=== PATIENT | male | born 1940 | race Caucasian/White ===

== ENCOUNTER 2017-04-06 13:13 | Inpatient (IN) | payer OTHER ==
--- NOTE | 2017-04-06 13:55 | ED.PDOC ---
General ED Provider: Dr. ANNA THOMAS Chief Complaint: Non-specific Complaint Stated Complaint: Flu like symtoms that he thiinks he got from the . c/o sore throat, bodyaches feels like the flu. Had a near syncapal episode in the waiting room. Time Seen by Physician: 13:52 Mode of Arrival: Walk-In Information Source: Patient Exam Limitations: No limitations Primary Care Provider: JOSH STEPHENSON Nursing and Triage Documentation Reviewed and Agree: Yes Miscellaneous Complaint Exam - Febrile Illness/Adult Complaint/Exam Onset/Duration: 2 days Symptoms Are: Still present Highest Temperature Recorded: 101.6 Review of Systems - Review Of Systems Constitutional: Reports: Fever, Weakness, Loss of appetite Eyes: Reports: No symptoms Ears, Nose, Mouth, Throat: Reports: Throat pain Respiratory: Reports: No symptoms Cardiac: Reports: Lightheadedness GI: Reports: No symptoms : Reports: No symptoms Musculoskeletal: Reports: No symptoms Skin: Reports: No symptoms Neurological: Reports: Anxiety Endocrine: Reports: No symptoms Hematologic/Lymphatic: Reports: No symptoms All Other Systems: Reviewed and Negative Past Medical History - Past Medical History Endocrine: Reports: Dyslipidemia Cardiovascular: Reports: Hypertension Respiratory: Reports: None Hematological: Reports: None Gastrointestinal: Reports: GERD Genitourinary: Reports: None Neuro/Psych: Reports: None Musculoskeletal: Reports: None Cancer: Reports: None - Surgical History General Surgical History: Reports: Orthopedic (right leg surgery ), Hernia Repair - Family History Family History: Reports: Unknown - Social History Smoking Status: Former smoker Hx Substance Use: No Alcohol Screening: None - Immunizations Tetanus Shot up to Date: No Physical Exam - Physical Exam Appearance: Ill-appearing Ill-appearing: Moderate Eyes: YAHAIRA, EOMI, Conjunctiva clear ENT: Ears normal, Nose normal Neck: Supple Respiratory: Airway patent, Breath sounds clear, Breath sounds equal, Respirations nonlabored Cardiovascular: RRR, Pulses normal, No rub, No murmur GI/: Soft, Nontender, Bowel sounds normal Musculoskeletal: Normal strength, ROM intact Skin: Warm, Dry Neurological: Sensation intact, Motor intact, Reflexes intact, Cranial nerves intact, Alert, Oriented Psychiatric: Affect appropriate, Mood appropriate Interpretation - EKG Interpretation Time of EKG #1: 14:10 Rate: Normal Rhythm: Sinus Ectopy: None Petty: NL ST Segment: Normal Interpretation: normaL EKG Critical Care Note - Critical Care Note Total Time (mins): 30 Comments: Blood pressure Course - Course Hematology/Chemistry: 04/06/17 14:00 04/06/17 14:00 Orders, Labs, Meds: Lab Review 04/06/17 04/06/17 04/06/17 14:00 14:00 14:00 WBC 12.46 H RBC 4.49 L Hgb 13.8 L Hct 39.4 L MCV 87.8 MCH 30.7 MCHC 35.0 RDW Coeff of Gloria 12.4 Plt Count 206 Immature Gran % (Auto) 0.4 Neut % (Auto) 79.4 Lymph % (Auto) 10.4 [place] % (Auto) 7.6 Eos % (Auto) 1.9 Baso % (Auto) 0.3 Immature Gran # (Auto) 0.1 Neut # 9.9 H Lymph # 1.3 [place] # 1.0 Eos # 0.2 Baso # 0.0 Sodium 139 Potassium 3.6 Chloride 103 Carbon Dioxide 26 Anion Gap 13.6 BUN 12 Creatinine 1.09 Estimated GFR (MDRD) 66.00 BUN/Creatinine Ratio 11.00 Glucose 102 Calcium 9.3 Total Bilirubin 0.67 AST 16 ALT 17 Alkaline Phosphatase 62 Troponin I < 0.0100 Total Protein 7.2 Albumin 3.7 Globulin 3.5 Albumin/Globulin Ratio 1.06 Influenza A (Rapid) Negative Influenza B (Rapid) Negative Orders Category Date Time Status EKG-(ED ONLY) Stat CARDIO 04/06/17 13:35 Completed ED IV/MEDIPORT/POWERPORT .ONCE EMERGENCY 04/06/17 14:18 Active Orthostatic [ED ORTHOSTATIC VITAL SIGNS] .ONCE EMERGENCY 04/06/17 13:52 Active BLOOD CULTURE Stat LAB 04/06/17 15:40 Received CBC W/ AUTO DIFF Stat LAB 04/06/17 14:00 Completed COMPREHENSIVE METABOLIC PANEL Stat LAB 04/06/17 14:00 Completed FLU A & B RAPID TEST [RAPID FLU A/B] Stat LAB 04/06/17 14:00 Completed MOLECULAR GROUP A STREP Stat LAB 04/06/17 14:00 Results STREP SCREEN Stat LAB 04/06/17 14:00 Results TROPONIN I Stat LAB 04/06/17 14:00 Completed 0.9 % Sodium Chloride [Saline Flush] MEDS 04/06/17 14:18 Ordered 1 syr IVF PRN PRN Azithromycin [Zithromax] MEDS 04/06/17 15:17 Discontinued 500 mg PO ONCE STA Ceftriaxone Sodium [Rocephin] 1 gm MEDS 04/06/17 15:17 Discontinued 0.9 % Sodium Chloride [Sodium Chloride] 50 ml IV ONCE Methylprednisolone Sod Succ/Pf [Solu-Medrol 125 mg] MEDS 04/06/17 15:15 Discontinued 125 mg IVP ONCE STA Sodium Chloride 0.9% [Sodium Chloride] 1,000 ml MEDS 04/06/17 14:18 Discontinued IV BOLUS CHEST, 1V AP ONLY Stat RADS 04/06/17 15:[address] HEAD W/O CONTRAST Stat RADS 04/06/17 14:18 Completed Medications Generic Name Dose Route Start Last Admin Trade Name Freq PRN Reason Stop Dose Admin Acetaminophen 650 mg 04/06/17 15:24 04/06/17 17:09 Tylenol PO 650 mg Q4H PRN Administration Fever Azithromycin 250 mg 04/07/17 15:30 Zithromax PO 04/10/17 09:01 DAILY ON LICENSE OF [facility] Enoxaparin Sodium 40 mg 04/07/17 09:00 Lovenox SUBCUT DAILY ON LICENSE OF [facility] Escitalopram Oxalate 5 mg 04/07/17 09:00 Lexapro PO DAILY ON LICENSE OF [facility] Ceftriaxone Sodium 1 gm/ 50 mls @ 75 mls/hr 04/07/17 09:00 Sodium Chloride IV DAILY ON LICENSE OF [facility] Sodium Chloride 1,000 mls @ 125 mls/hr 04/06/17 15:30 04/06/17 16:53 Sodium Chloride IV 125 mls/hr .Q8H LUBA Administration Magnesium Hydroxide 15 ml 04/06/17 21:00 Milk Of Magnesia PO TID ON LICENSE OF [facility] Non-Formulary Medication 10 mg 04/07/17 09:00 Simvastatin [Simvastatin] PO DAILY ON LICENSE OF [facility] Omeprazole 40 mg 04/07/17 06:30 Prilosec PO QDAC LUBA Ondansetron HCl 4 mg 04/06/17 15:24 Zofran 4 Mg/2 Ml IVP Q6H PRN Nausea / Vomiting Sodium Chloride 1 syr 04/06/17 14:18 Saline Flush IVF PRN PRN To flush IV Tamsulosin HCl 0.4 mg 04/07/17 09:00 Flomax PO DAILY [facility] Discontinued Medications Generic Name Dose Route Start Last Admin Trade Name Freq PRN Reason Stop Dose Admin Azithromycin 500 mg 04/06/17 15:17 04/06/17 15:37 Zithromax PO 04/06/17 15:18 500 mg ONCE STA Administration Sodium Chloride 1,000 mls @ 1,000 mls/hr 04/06/17 14:18 04/06/17 14:40 Sodium Chloride IV 04/06/17 15:17 1,000 mls/hr BOLUS STA Administration Ceftriaxone Sodium 1 gm/ 50 mls @ 75 mls/hr 04/06/17 15:17 04/06/17 15:37 Sodium Chloride IV 04/06/17 15:56 75 mls/hr ONCE STA Administration Methylprednisolone Sodium Succinate 125 mg 04/06/17 15:15 04/06/17 15:36 Solu-Medrol 125 Mg IVP 04/06/17 15:16 125 mg ONCE STA Administration Vital Signs: Temp Pulse Resp BP Pulse Ox 04/06/17 14:10 92 H 91/65 04/06/17 14:09 69 130/68 04/06/17 13:15 99.2 F 73 20 128/65 98 Departure - Departure Time of Disposition: 15:18 Disposition: ADMITTED INPATIENT Discharge Problem: Orthostatic hypotension, Viral syndrome Condition: Fair Pt referred to PMD for follow-up: No (admitted ) Allergies/Adverse Reactions: Allergies No Known Allergies Allergy (Verified 04/06/17 13:20) Home Medications: Ambulatory Orders Escitalopram Oxalate [Lexapro] 5 mg PO BEDTIME 10/10/13 Omeprazole [Prilosec] 40 mg PO BEDTIME 10/10/13 Simvastatin 10 mg PO BEDTIME 10/10/13 Tamsulosin HCl [Flomax] 0.4 mg PO BEDTIME 10/10/13
[2017-04-06 14:07] LABS: BASOPHILS % (AUTO) 0.3 % (0.0-3.0); EOSINOPHILS # (AUTO) 0.2 K/ul (0.0-0.7); EOSINOPHILS % (AUTO) 1.9 % (0.0-7.0); HEMATOCRIT 39.4 % (42.0-52.0); HEMOGLOBIN 13.8 g/dl (14.0-18.0); IMMATURE GRANULOCYTE % (AUTO) 0.4 % (0.0-5.0); LYMPHOCYTES # (AUTO) 1.3 K/uL (0.60-3.4); LYMPHOCYTES % (AUTO) 10.4 (10.0-50.0); MEAN CORPUSCULAR HEMOGLOBIN 30.7 pg (27.0-31.0); MEAN CORPUSCULAR VOLUME 87.8 fl (80.0-94.0); MONOCYTES % (AUTO) 7.6 (0-10); NEUTROPHILS # (AUTO) 9.9 K/ul (2.0-6.9); NEUTROPHILS % (AUTO) 79.4; PLATELET COUNT 206 10^3/uL (140-440); RED BLOOD COUNT 4.49 10^6/ul (4.70-6.10); WHITE BLOOD COUNT 12.46 K/ul (4.2-10.2)
[2017-04-06] MEDS ORDERED: SODIUM CHLORIDE 1,000 ML IV STA (14:18)
[2017-04-06 14:26] LABS: FLU INTERNAL QC INTERNAL QC VALID; RAPID FLU A NEGATIVE (NEGATIVE); RAPID FLU B NEGATIVE (NEGATIVE)
[2017-04-06 14:33] LABS: ALANINE AMINOTRANSFERASE 17 U/L (12-78); ALBUMIN 3.7 g/dL (3.4-5.0); ALBUMIN/GLOBULIN RATIO 1.06; ALKALINE PHOSPHATASE 62 U/L (56-119); ANION GAP 13.6; ASPARTATE AMINO TRANSFERASE 16 U/L (15-37); BILIRUBIN,TOTAL 0.67 mg/dL (0.00-1.20); BLOOD UREA NITROGEN 12 mg/dL (7-18); CALCIUM 9.3 mg/dL (8.2-10.2); CARBON DIOXIDE 26 mmol/L (23-31); CHLORIDE 103 mmol/L (98-107); CREATININE 1.09 mg/dL (0.60-1.10); GLUCOSE 102 mg/dL (82-115); POTASSIUM 3.6 mmol/L (3.5-5.1); SODIUM 139 mmol/L (136-145); TOTAL PROTEIN 7.2 g/dL (5.8-8.1)
--- NOTE | 2017-04-06 14:45 | CT ---
EXAM: Noncontrast CT head. HISTORY: Near-syncope. COMPARISON: None available at the time of dictation. TECHNIQUE: Noncontrast CT head was performed with axial, coronal and sagittal reconstructions. Findings: There is preservation of the joshi-white differential without evidence of definitive large vessel acut e cortical infarct identified. No acute intracranial hemorrhage is identified. No midline shift is i dentified. No definitive intracranial mass lesion is identified within technical limitations of nonco ntrast CT. The basal cisterns are patent. There is mild ventricular enlargement suggesting diffuse b rain parenchymal volume loss. Bilateral minimal periventricular white matter hypodensities are presen t. Limited evaluation of the skull demonstrates no visualized lucent skull acute fractures or destruc tive osseous lesions identified within the visualized portions of the skull. Partially visualized pa ranasal sinuses and mastoid air cells demonstrates mucosal thickening and fluid seen within the parti ally visualized left maxillary sinus suggestive of left maxillary sinus disease. Moderate mucosal th ickening and patchy opacification of the ethmoid air cells also suggest underlying paranasal sinus di sease. Impression: 1. No acute intracranial hemorrhage or definitive large vessel acute cortical infarct identified. 2. Diffuse brain parenchymal volume loss likely age related. 3. Bilateral minimal periventricular white matter hypodensities which are not specicific but can be s een with chronic microvascular ischemic disease. 4. Paranasal sinus disease as detailed. Fluid within the partially visualized left maxillary sinus may represent active sinusitis.
[2017-04-06] MEDS ORDERED: SOLU-MEDROL 125 MG IVP STA (15:15)
[2017-04-06] MEDS ORDERED: ZITHROMAX PO STA (15:17)
[2017-04-06] MEDS ORDERED: ROCEPHIN 1 GM in SODIUM CHLORIDE 50 ML IV STA (15:17)
[2017-04-06] MEDS ORDERED: ROCEPHIN ONE ×2 (15:21→15:22)
[2017-04-06] MEDS ORDERED: TYLENOL PO PRN (15:24)
[2017-04-06] MEDS ORDERED: ZOFRAN 4 MG/2 ML IVP PRN (15:24)
--- NOTE | 2017-04-06 16:11 | DI ---
EXAM: Chest one view. CLINICAL INDICATION: Dizziness. COMPARISON: 05/12/2010. FINDINGS: A single AP radiograph of the thorax is provided. The pulmonary parenchyma is clear and there is no pleural abnormality. The cardiomediastinal silhoue tte and visualized bony structures are unremarkable. IMPRESSION: Negative chest x-ray.
[2017-04-06 16:31] VITALS: BMI 28.3
[2017-04-06] MEDS: SODIUM CHLORIDE 1,000 ML IV SCH (16:53)
[2017-04-06] MEDS ORDERED: TORADOL IVP STA (18:45)
[2017-04-06] MEDS ORDERED: TORADOL IVP PRN (18:45)
[2017-04-06] MEDS ORDERED: TORADOL IVP ONE (19:00)
[2017-04-06] MEDS ORDERED: ZOCOR ONE (20:28)
[2017-04-06] MEDS: PRILOSEC PO SCH (20:30)
[2017-04-06] MEDS: FLOMAX PO SCH (20:30)
[2017-04-06] MEDS: LEXAPRO PO SCH (20:31)
[2017-04-06] MEDS ORDERED: PRILOSEC PO SCH (21:00)
[2017-04-06] MEDS ORDERED: MILK OF MAGNESIA PO SCH (21:00)
[2017-04-06] MEDS ORDERED: SIMVASTATIN 10 MG PO SCH ×22 (21:00)
[2017-04-07] MEDS: SODIUM CHLORIDE 1,000 ML IV SCH ×2 (00:52→09:06)
[2017-04-07] MEDS ORDERED: TORADOL IVP PRN (02:00)
[2017-04-07 04:32] LABS: BASOPHILS % (AUTO) 0.2 % (0.0-3.0); HEMATOCRIT 37.6 % (42.0-52.0); LYMPHOCYTES # (AUTO) 1.4 K/uL (0.60-3.4); LYMPHOCYTES % (AUTO) 12.1 (10.0-50.0); MEAN CORPUSCULAR HEMOGLOBIN 30.7 pg (27.0-31.0); MEAN CORPUSCULAR HGB CONC 34.6 (31.8-35.4); MEAN CORPUSCULAR VOLUME 88.9 fl (80.0-94.0); MONOCYTES # (AUTO) 0.4 K/uL (0.4-2.0); MONOCYTES % (AUTO) 3.2 (0-10); NEUTROPHILS # (AUTO) 9.5 K/ul (2.0-6.9); NEUTROPHILS % (AUTO) 83.5; PLATELET COUNT 215 10^3/uL (140-440); RED BLOOD COUNT 4.23 10^6/ul (4.70-6.10); WHITE BLOOD COUNT 11.35 K/ul (4.2-10.2)
[2017-04-07 04:52] LABS: ANION GAP 11.2; BUN/CREATININE RATIO 15.95; CALCIUM 8.9 mg/dL (8.2-10.2); CREATININE 0.94 mg/dL (0.60-1.10); POTASSIUM 4.2 mmol/L (3.5-5.1)
[2017-04-07] MEDS ORDERED: PRILOSEC PO SCH (06:30)
[2017-04-07] MEDS ORDERED: DECADRON 4 MG/ML SDV IM ONE (09:00)
[2017-04-07] MEDS ORDERED: LEXAPRO PO SCH (09:00)
[2017-04-07] MEDS ORDERED: SIMVASTATIN 10 MG PO SCH ×22 (09:00)
[2017-04-07] MEDS ORDERED: FLOMAX PO SCH (09:00)
[2017-04-07] MEDS: ZITHROMAX PO SCH (09:13)
[2017-04-07] MEDS: LOVENOX SUBCUT SCH (09:14)
[2017-04-07] MEDS: ROCEPHIN 1 GM in SODIUM CHLORIDE 50 ML IV SCH (09:19)
[2017-04-07] MEDS ORDERED: ZITHROMAX PO SCH (15:30)
[2017-04-07] MEDS: PRILOSEC PO SCH (20:44)
[2017-04-07] MEDS: LEXAPRO PO SCH (20:44)
[2017-04-07] MEDS: ZOCOR PO SCH (20:45)
[2017-04-07] MEDS: FLOMAX PO SCH (20:45)
[2017-04-08 04:26] LABS: BASOPHILS % (AUTO) 0.2 % (0.0-3.0); EOSINOPHILS # (AUTO) 0.1 K/ul (0.0-0.7); EOSINOPHILS % (AUTO) 0.7 % (0.0-7.0); HEMATOCRIT 36.5 % (42.0-52.0); HEMOGLOBIN 12.2 g/dl (14.0-18.0); IMMATURE GRANULOCYTE % (AUTO) 0.6 % (0.0-5.0); LYMPHOCYTES # (AUTO) 2.9 K/uL (0.60-3.4); LYMPHOCYTES % (AUTO) 15.6 (10.0-50.0); MEAN CORPUSCULAR HGB CONC 33.4 (31.8-35.4); MEAN CORPUSCULAR VOLUME 89.7 fl (80.0-94.0); MONOCYTES # (AUTO) 1.6 K/uL (0.4-2.0); MONOCYTES % (AUTO) 8.8 (0-10); NEUTROPHILS # (AUTO) 13.6 K/ul (2.0-6.9); NEUTROPHILS % (AUTO) 74.1; PLATELET COUNT 219 10^3/uL (140-440); RED BLOOD COUNT 4.07 10^6/ul (4.70-6.10); WHITE BLOOD COUNT 18.34 K/ul (4.2-10.2)
[2017-04-08 04:45] LABS: ANION GAP 11.7; BUN/CREATININE RATIO 18.09; CALCIUM 9.3 mg/dL (8.2-10.2); CREATININE 1.05 mg/dL (0.60-1.10); POTASSIUM 3.7 mmol/L (3.5-5.1)
[2017-04-08] MEDS: LOVENOX SUBCUT SCH (08:26)
[2017-04-08] MEDS: ZITHROMAX PO SCH (08:26)
[2017-04-08] MEDS: ROCEPHIN 1 GM in SODIUM CHLORIDE 50 ML IV SCH (10:15)
--- NOTE | 2017-04-08 11:47 | US ---
EXAM: ULTRASOUND CAROTID DUPLEX, BILATERAL HISTORY: Dizziness, lightheadedness FINDINGS: Forde-scale ultrasound, color Doppler and spectral analysis was performed. Velocities are in meters per second. By forde scale and color Doppler imaging, there appears to be only minimal intimal thickening and scat tered atherosclerotic plaque in both carotid systems, including the bulbs and internal carotid arteri es. RIGHT: External carotid artery peak systolic velocity: 1.0/0.1 Common carotid artery peak systolic velocity/end diastolic velocity: 0.9/0.2 Internal carotid artery peak systolic velocity: 0.7 ICA/CCA peak systolic velocity ratio: 0.8 ICA end diastolic velocity: 0.2 LEFT: External carotid artery peak systolic velocity: 0.8/0.1 Common carotid artery peak systolic velocity/end diastolic velocity: 1.0/0.2 Internal carotid artery peak systolic velocity: 0.6 ICA/CCA peak systolic velocity ratio: 0.7 ICA end diastolic velocity: 0.2 The right and left vertebral arteries were antegrade. IMPRESSION: 1. By forde scale and color Doppler imaging, there appears to be only minimal intimal thickening and scattered atherosclerotic plaque in both carotid systems, including the bulbs and internal carotid ar teries. 2. Internal carotid artery peak systolic velocities and ICA/CCA peak systolic velocity ratios indica te no hemodynamically significant stenosis bilaterally. 3. Both vertebral arteries were antegrade.
--- NOTE | 2017-04-08 12:32 | PCM.PROG ---
Attending Provider: ATTENDING PROVIDER: Dr. JOSH STEPHENSON This patient is seen with Rhonda Andrews, Nurse Practitioner. DATE OF SERVICE: 04/08/17 SUBJECTIVE: This 76 year old WHITE/ M was hospitalized 04/06/17. The patient is lying in bed, alert. He states he is feeling better today. He has had no episodes of dizziness or weakness since admission. Episodes sound more like hypoglycemia. The patient has carotid ultrasound today. REVIEW OF SYSTEMS: CONSTITUTIONAL: No night sweats. No fatigue, malaise, lethargy. No fever or chills. HEENT: Eyes: No visual changes. No eye pain. No eye discharge. ENT: Nasal congestion. No epistaxis. No sinus pain. No odynophagia. No congestion. RESPIRATORY: No cough, no congestion. No hemoptysis. No shortness of breath. CARDIOVASCULAR: No angina symptoms. No CHF symptoms. No atypical chest pain for CAD. No palpitations. No orthopnea.. GASTROINTESTINAL: No abdominal pain. No nausea or vomiting. No diarrhea or constipation. No hematemesis. No hematochezia. GENITOURINARY: No urgency. No frequency. No dysuria. No hematuria. No obstructive symptoms. No discharge. No pain. No significant abnormal bleeding. MUSCULOSKELETAL: No musculoskeletal pain; no joint swelling. NEUROLOGICAL: Awake, alert, oriented to time, place and person. No headache. No neck pain. No syncope. No seizures. No dizziness. PSYCHIATRIC: Not anxious. No depression. No suicidal thoughts. No homicidal thoughts. SKIN: No rash. No lesions. No wounds. ENDOCRINE: No unexplained weight loss. No weight gain. HEMATOLOGIC/LYMPHATIC: No anemia. No purpura. No petechiae. No prolonged or excessive bleeding. No palpable lymph nodes. PHYSICAL EXAMINATION: GENERAL: The patient is awake, alert and oriented, lying in bed in no distress. VITAL SIGNS: Temperature 98.3 F, Pulse 58, Respiratory Rate 16, BP 141/73, Pulse Ox 96% HEENT: Head normocephalic, atraumatic. Eyes: Extraocular muscles are intact. Pupils are equal, round and reactive to light and accommodation. Ears: No lesions. Nose appeared normal. Throat: No exudate or erythema. NECK: Supple. No JVD, no carotid bruit. No lymphadenopathy or thyromegaly. LUNGS: Clear to auscultation. Percussion note normal. Chest symmetrical. HEART: S1, S2, no S3. No murmurs. No cyanosis or clubbing. No ascites. Pulses: Dorsalis pedis and posterior tibial pulses +1 to +2 both sides. ABDOMEN: Soft. Non-tender. Bowel sounds active. No CVA tenderness. No mass felt. EXTREMITIES: No edema. Full range of motion of all extremities, equal. NEUROLOGIC: No focal deficit. Cranial nerves II through XII are grossly intact. No headache, no double vision or headache. SKIN: Not dry. Intact. Turgor-normal. LYMPHATIC: No palpable lymph nodes/no lymphedema. MUSCULOSKELETAL: Normal joints with no swelling. Muscle tone is normal. LAB REVIEW: 04/08/17 04:25 04/08/17 04:25 04/08/17 04:25: Sodium 142, Potassium 3.7, Chloride 108 H, Carbon Dioxide 26, Anion Gap 11.7, BUN 19 H, Creatinine 1.05, Estimated GFR (MDRD) 69.00, BUN/ Creatinine Ratio 18.09, Glucose 129 H, Calcium 9.3 04/08/17 04:25: WBC 18.34 H D, RBC 4.07 L, Hgb 12.2 L, Hct 36.5 L, MCV 89.7, MCH 30.0, MCHC 33.4, RDW Coeff of Gloria 13.1, Plt Count 219, Immature Gran % (Auto ) 0.6, Neut % (Auto) 74.1, Lymph % (Auto) 15.6, [place] % (Auto) 8.8, Eos % (Auto) 0.7, Baso % (Auto) 0.2, Immature Gran # (Auto) 0.1, Neut # 13.6 H, Lymph # 2.9, [place] # 1.6, Eos # 0.1, Baso # 0.0 ASSESSMENT: 1. ORTHOSTATIC HYPOTENSION 2. POSSIBLE HYPOGLYCEMIC EPISODE 3. DIZZINESS IMPROVED 4. MASTOID SINUSITIS 5. DYSLIPIDEMIA PLAN: 1. Carotid ultrasound today 2. Echocardiogram if not previously done Plan and coordination of the patient's care discussed in the presence of Frame Assembler and nurse. CONDITION: Stable SCRIBED BY: CARRIE DIXON Supervisor Sewer Maintenance scribed while in presence of service performed by Dr. Stephenson/Rhonda Andrews APRN on 04/08/17 ([id number])
--- NOTE | 2017-04-08 15:16 | PN ---
DATE OF SERVICE: 04/07/17 SUBJECTIVE: 76-year-old white male hospitalized with acute bronchitis, sinusitis with fever and chills. The patient almost passed out. He had postural hypotension. The patient's blood pressure is now 117/64. PHYSICAL EXAMINATION: HEENT: Head normocephalic, atraumatic. Eyes: Extraocular muscles are intact. Pupils are equal, round and reactive to light and accommodation. Ears: No lesions. Nose appeared normal. Throat: No exudate or erythema. NECK: Supple. No JVD, no carotid bruit. No lymphadenopathy or thyromegaly. LUNGS: Clear to auscultation. Percussion note normal. Chest symmetrical. HEART: S1, S2, no S3. No murmurs. No cyanosis or clubbing. No ascites. Pulses: Dorsalis pedis and posterior tibial pulses +1 to +2 both sides. ABDOMEN: Soft. Nontender. Bowel sounds active. No CVA tenderness. No mass felt. EXTREMITIES: No edema. Full range of motion of all extremities, equal. NEUROLOGIC: No focal deficit. Cranial nerves II through XII are grossly intact. No headache, no double vision or headache. SKIN: Not dry. Intact. Turgor - normal. LYMPHATIC: No palpable lymph nodes/no lymphedema. MUSCULOSKELETAL: Normal joints with no swelling. Muscle tone is normal. LABS: Hemoglobin 13, hematocrit 37, WBC 11,000, normal differential. Creatinine 0.9, BUN 15, potassium 4.2. ASSESSMENT: 1. ACUTE BRONCHITIS/SINUSITIS SEEMS TO BE RESOLVING WITH IV ANTIBIOTICS, STEROIDS 2. SYNCOPE/NEAR SYNCOPE LIKELY FROM POSTURAL HYPOTENSION PLAN: 1. Continue to push oral fluids 2. Steroids, antibiotics 3. Will discontinue IV fluids 4. Up and about 5. Telemetry does not show any arrhythmias, will do carotid scan CONDITION: Stable. . TIME SPENT: More than 30 minutes. Plan and coordination of the patient's care discussed in the presence of nurse. JUAN FRANCISCO
[2017-04-08] MEDS: LEXAPRO PO SCH (20:33)
[2017-04-08] MEDS: PRILOSEC PO SCH (20:33)
[2017-04-08] MEDS: ZOCOR PO SCH (20:33)
[2017-04-08] MEDS: FLOMAX PO SCH (20:33)
[2017-04-09] MEDS: ZITHROMAX PO SCH (08:14)
[2017-04-09] MEDS: LOVENOX SUBCUT SCH (08:14)
[2017-04-09] MEDS: ROCEPHIN 1 GM in SODIUM CHLORIDE 50 ML IV SCH (08:14)
[2017-04-09 09:53] VITALS: BP 126/74; TEMP 98.6
--- NOTE | 2017-04-09 11:10 | CM.DICTOOL ---
ADMISSION: 04/06/17 15:23 DISCHARGE: April 09, 2017 DATE OF SERVICE: 04/09/17 FINAL DIAGNOSIS Orthostatic hypotension Near Syncope Acute Bronchitis Sinusitis, Left Maxillary Hyperlipidemia GERD Hiatal Hernia Repair BPH LAST VITALS Temp Pulse Resp BP Pulse Ox 98.0 F 70 16 131/85 97 04/09/17 10:00 04/09/17 10:00 04/09/17 10:00 04/09/17 10:00 04/09/17 10:00 ACTIVE HOME MEDICATIONS Escitalopram Oxalate (Lexapro) 5 mg PO BEDTIME [facility] Last Admin: 04/08/17 20:33 Dose: 5 mg Omeprazole (Prilosec) 20 mg PO BEDTIME [facility] Last Admin: 04/08/17 20:33 Dose: 20 mg Simvastatin (Zocor) 10 mg PO BEDTIME [facility] Last Admin: 04/08/17 20:33 Dose: 10 mg Tamsulosin HCl (Flomax) 0.4 mg PO BEDTIME [facility] Last Admin: 04/08/17 20:33 Dose: 0.4 mg ALLERGIES No Known Allergies Allergy (Verified 04/06/17 13:20) NEW PRESCRIPTIONS: Zithromax 500 mg daily for 1 days Keflex 500 mg TID for 7 days Simvastatin 20 mg daily SMOKING: Not Applicable DISEASE SPECIFIC EDUCATION: Sinusitis Hypotension, position change Medications Appointment LAB REVIEW: 04/08/17 04:25 04/08/17 04:25 04/08/17 04:25: Sodium 142, Potassium 3.7, Chloride 108 H, Carbon Dioxide 26, Anion Gap 11.7, BUN 19 H, Creatinine 1.05, Estimated GFR (MDRD) 69.00, BUN/ Creatinine Ratio 18.09, Glucose 129 H, Calcium 9.3 04/08/17 04:25: WBC 18.34 H D, RBC 4.07 L, Hgb 12.2 L, Hct 36.5 L, MCV 89.7, MCH 30.0, MCHC 33.4, RDW Coeff of Gloria 13.1, Plt Count 219, Immature Gran % (Auto ) 0.6, Neut % (Auto) 74.1, Lymph % (Auto) 15.6, [place] % (Auto) 8.8, Eos % (Auto) 0.7, Baso % (Auto) 0.2, Immature Gran # (Auto) 0.1, Neut # 13.6 H, Lymph # 2.9, [place] # 1.6, Eos # 0.1, Baso # 0.0 PLAN: Discharge home Diet: Regular as tolerated Activity: Gradually Resume as tolerated. No driving if experiencing dizziness. No medication changes. Continue home medications as listed on nursing discharge information sheet. An appointment is scheduled with Dr. Jessica/Rhonda Andrews APRN on April 15 at 1:30 Mr. Red is alert and oriented x 3. He is ambulatory per self and independent with all activities of daily living. He does not require an assistive device for ambulation. He denies dizziness with activity. No abdominal pain or nausea. Meal intakes 100%. No fever of chills. Skin is intact and free of decubitus ulcers, rashes or irritation. Juan Jessica MD Rhonda Andrews APRN
--- NOTE | 2017-04-09 13:01 | ECHO2D ---
Date of Exam: 04/08/17 Ordering Physician: JOSH STEPHENSON Room #: 102 Reason for Echo: NEAR SYNCOPE/ORTHOSTATIC HYPOTENSION M-Mode Normal Adult Results LV Dimensions Normal Adult Results AoV Opening excursions >1.6 >1.6 LVEDD-base- 3.5-5.8 4.9 Ao root dimensions 2.0-3.7 3.3 LVESD-base- 3.1-4.6 L. Atrium dimensions 1.9-3.8 4.1 Post. Wall thickness 0.8-1.1 1.2 IV septum (thickness) 0.7-1.2 1.2 Post. Wall excursion 0.72-1.3 NORMAL Septal motion NORMAL Systolic motion R. Ventricular cavity 1.5-2.0 NORMAL LVEF 60% 59% Paradoxical septal wall motion NORMAL 2-D : 2-D M Mode Echocardiogram was performed using apical four chamber and left parasternal long and short axis views. Mitral, tricuspid and aortic valves appear to be normal. Contractility of the left ventricle seems to be normal, so is the cavity size. Left atrial cavity mildly enlarged. Aortic root appears to be normal. There is no pericardial effusion. There is no thrombus noted in the left ventricular or left aortic cavity. No mitral valve prolapse noted. M-MODE: MV: NORMAL AV: NORMAL TV: NORMAL PV: CHAMBER SIZE: ENLARGED LEFT ATRIAL CAVITY WALL MOTION: NORMAL PERICARDIUM: NORMAL INTERPRETATION: 1. BORDERLINE LEFT VENTRICULAR HYPERTROPHY WITH ENLARGED LEFT ATRIAL CAVITY 2. NORMAL LEFT VENTRICULAR ACONTRACTILITY 3. NORMAL VALVES MTDD
--- NOTE | 2017-04-09 14:34 | HP ---
DATE OF SERVICE: 04/06/17 HISTORY OF PRESENT ILLNESS: This is a 76-year-old male who came in with flu-type of symptoms, cough, congestion, fever, sore throat and bodyaches. He had a near syncopal episode in the waiting room where the patient thought he was going to pass out unless he was supported so he laid down on the floor. The patient says these symptoms have been there for the past 2 to 3 days and getting worse. On further workup, the patient has severe postural hypotension with evidence of dehydration. REVIEW OF SYSTEMS: CONSTITUTIONAL: Weakness and fatigue. No night sweats. No fever or chills. HEENT: Eyes: No visual changes. No eye pain. No eye discharge. ENT: No runny nose. No epistaxis. No sinus pain. No sore throat. No odynophagia. No congestion. RESPIRATORY: Mild cough. No congestion. No hemoptysis. No shortness of breath at rest. No PND. CARDIOVASCULAR: No angina symptoms. No CHF symptoms. No atypical chest pain for CAD. No palpitations. No orthopnea. GASTROINTESTINAL: Appetite poor for the last couple of days and hasn't been able to eat. No reflux type of symptoms. No abdominal pain. No nausea or vomiting. No diarrhea or constipation. No hematemesis. No hematochezia. GENITOURINARY: No urgency. No frequency. No dysuria. No hematuria. No obstructive symptoms. No discharge. No pain. No significant abnormal bleeding. MUSCULOSKELETAL: No musculoskeletal pain; no joint swelling. NEUROLOGICAL: No headache. No neck pain. No syncope. No seizures. No dizziness. PSYCHIATRIC: Not anxious. No depression. No suicidal thoughts. No homicidal thoughts. SKIN: No rash. No lesions. No wounds. ENDOCRINE: No unexplained weight loss. No weight gain. HEMATOLOGIC/LYMPHATIC: No anemia. No purpura. No petechiae. No prolonged or excessive bleeding. No palpable lymph nodes. PAST MEDICAL/SURGICAL HISTORY: The patient had gastrectomy done. His stomach was found to be obstructed in the thoracic cavity with emergency surgery at [facility]. Other problems depression, hypertension, dyslipidemia, reflux disease. REVIEW OF SYSTEMS: CONSTITUTIONAL: No night sweats. No fatigue, malaise, lethargy. No fever or chills. HEENT: Eyes: No visual changes. No eye pain. No eye discharge. ENT: No runny nose. No epistaxis. No sinus pain. No sore throat. No odynophagia. No ear pain. No congestion. RESPIRATORY: No cough, no congestion. No hemoptysis. No shortness of breath. CARDIOVASCULAR: No angina symptoms. No CHF symptoms. No atypical chest pain for CAD. No palpitations. No orthopnea. GASTROINTESTINAL: No abdominal pain. No nausea or vomiting. No diarrhea or constipation. No hematemesis. No hematochezia. GENITOURINARY: No urgency. No frequency. No dysuria. No hematuria. No obstructive symptoms. No discharge. No pain. No significant abnormal bleeding. MUSCULOSKELETAL: No musculoskeletal pain. No joint swelling. No arthritis. NEUROLOGICAL: No headache. No neck pain. No syncope. No seizures. No dizziness. PSYCHIATRIC: Not anxious. No depression. No suicidal thoughts. No homicidal thoughts. SKIN: No rash. No lesions. No wounds. ENDOCRINE: No unexplained weight loss. No weight gain. HEMATOLOGIC/LYMPHATIC: No anemia. No purpura. No petechiae. No prolonged or excessive bleeding. No palpable lymph nodes. PERSONAL/FAMILY/SOCIAL HISTORY: The patient is , lives with the . Nonsmoker. No alcohol abuse. He does all activities of daily living. MEDICATIONS: Lexapro 5 mg p.o. daily Omeprazole 40 mg daily Simvastatin 10 mg p.o. daily Tamsulosin 0.5 daily Milk of Magnesia ALLERGIES: NKDA PHYSICAL EXAMINATION: VITAL SIGNS: Temperature 99.2, pulse 92/min, respiratory rate 20, BP 125/71, pulse ox 91%. The patient's blood pressure was 90 systolic with postural hypotension. HEENT: Head normocephalic, atraumatic. Eyes: Extraocular muscles are intact. Pupils are equal, round and reactive to light and accommodation. Ears: No lesions. Nose appeared normal. Throat: No exudate or erythema. NECK: Supple. No JVD, no carotid bruit. No lymphadenopathy or thyromegaly. LUNGS: Clear to auscultation. Percussion note normal. Chest symmetrical. HEART: S1, S2, no S3. No murmurs. No cyanosis or clubbing. No ascites. Pulses: Dorsalis pedis and posterior tibial pulses +1 to +2 both sides. ABDOMEN: Soft. Nontender. Bowel sounds active. No CVA tenderness. No mass felt. EXTREMITIES: No edema. Full range of motion of all extremities, equal. NEUROLOGIC: No focal deficit. Cranial nerves II through XII are grossly intact. No headache, no double vision or headache. SKIN: Not dry. Intact. Turgor - normal. LYMPHATIC: No palpable lymph nodes/no lymphedema. MUSCULOSKELETAL: Normal joints with no swelling. Muscle tone is normal. LABS: Creatinine 1, BUN 12, potassium 3.6. Influenza negative. Troponin normal. Liver enzymes negative. Hemoglobin 13, hematocrit 39, WBC 12,400, normal differential. Chest x-ray negative. ASSESSMENT: 1. ACUTE FLU SYNDROME WITH BRONCHITIS/SINUSITUS COULD BE BACTERIAL WITH HIGH WBC COUNT. INFLUENZA TEST NEGATIVE. 2. SEVERE DEHYDRATION 3. POSTURAL HYPOTENSION WITH NEAR SYNCOPAL EPISODE FROM CEREBRAL INSUFFICIENCY 4. DYSLIPIDEMIA 5. HISTORY OF REFLUX DISEASE STATUS POST SURGERY ESOPHAGOGASTRECTOMY DONE AT [facility] A FEW YEARS AGO PLAN: 1. IV fluids 2. Telemetry 3. EKG 4. Push oral fluids 5. Steroids 6. IV antibiotics and Zithromax 7. Continue reflux treatment with Prilosec The patient's condition is stable. The patient was seen and examined in his Room 102 at approximately 6 p.m. TIME SPENT: More than 70 minutes. [facility]
--- NOTE | 2017-04-15 11:48 | PN ---
DATE OF SERVICE: 04/08/17 SUBJECTIVE: The patient was admitted with acute sinusitis/bronchitis. The patient had near syncopal episode and hypotension, both of them resolved. He is up and about, gaining strength back. He was on IV fluids and is now on antibiotics and steroids. The patient also is afebrile. Condition is stable. He has carotid scan which showed plaque formation. Echocardiogram showed borderline LVH, normal LV contractility. CONDITION: Stable TIME SPENT: More than 30 minutes. The patient is seen and examined with nurse practitioner and case fitter. Plan and coordination of the patient's care discussed in the presence of nurse. JUAN FRANCISCO
--- NOTE | 2017-04-15 13:48 | PN ---
DATE OF SERVICE: 04/09/17 SUBJECTIVE: The patient is up and about. Bronchitis/sinusitus symptoms subsided. No postural hypotension, no dizziness. REVIEW OF SYSTEMS: CONSTITUTIONAL: No night sweats. No fatigue, malaise, lethargy. No fever or chills. HEENT: Eyes: No visual changes. No eye pain. No eye discharge. ENT: No runny nose. No epistaxis. No sinus pain. No sore throat. No odynophagia. No congestion. RESPIRATORY: No cough, no congestion. No hemoptysis. No shortness of breath. CARDIOVASCULAR: No angina symptoms. No CHF symptoms. No atypical chest pain for CAD. No palpitations. No orthopnea. GASTROINTESTINAL: No abdominal pain. No nausea or vomiting. No diarrhea or constipation. No hematemesis. No hematochezia. GENITOURINARY: No urgency. No frequency. No dysuria. No hematuria. No obstructive symptoms. No discharge. No pain. No significant abnormal bleeding. MUSCULOSKELETAL: No musculoskeletal pain; no joint swelling. NEUROLOGICAL: No headache. No neck pain. No syncope. No seizures. No dizziness. PSYCHIATRIC: Not anxious. No depression. No suicidal thoughts. No homicidal thoughts. SKIN: No rash. No lesions. No wounds. ENDOCRINE: No unexplained weight loss. No weight gain. HEMATOLOGIC/LYMPHATIC: No anemia. No purpura. No petechiae. No prolonged or excessive bleeding. No palpable lymph nodes. PHYSICAL EXAMINATION: VITAL SIGNS: Afebrile. HEENT: Head normocephalic, atraumatic. Eyes: Extraocular muscles are intact. Pupils are equal, round and reactive to light and accommodation. Ears: No lesions. Nose appeared normal. Throat: No exudate or erythema. NECK: Supple. No JVD, no carotid bruit. No lymphadenopathy or thyromegaly. LUNGS: Decreased breath sounds. Clear to auscultation. Percussion note normal. Chest symmetrical. HEART: S1, S2, no S3. No murmurs. No cyanosis or clubbing. No ascites. Pulses: Dorsalis pedis and posterior tibial pulses +1 to +2 both sides. ABDOMEN: Soft. Nontender. Bowel sounds active. No CVA tenderness. No mass felt. EXTREMITIES: No edema. Full range of motion of all extremities, equal. NEUROLOGIC: No focal deficit. Cranial nerves II through XII are grossly intact. No headache, no double vision or headache. SKIN: Not dry. Intact. Turgor - normal. LYMPHATIC: No palpable lymph nodes/no lymphedema. MUSCULOSKELETAL: Normal joints with no swelling. Muscle tone is normal. The patient's echo was practically normal with LVH with normal LV contractility. The patient had carotid scan which showed plaquing, not hemodynamically significant. The patient will be discharged on antibiotics, steroids. The patient is advised to increase Simvastatin to 20, advised to keep the non HDL below 100. The patient is unable to tolerate statin because of aches and pains. He has not been taking it at times. ASHD and progression of ASHD discussed. The patient's condition is stable. TIME SPENT: More than 30 minutes. The patient was seen with the nurse practitioner and bilingual patient support caseworker. Plan and coordination of the patient's care discussed in the presence of nurse. JUAN FRANCISCO
--- NOTE | 2017-04-15 13:49 | PN ---
CODING FOR BILLING ADMISSION DAY 04/06/17 LEVEL 5 04/07/17 INTERMEDIATE 04/08/17 INTERMEDIATE 04/09/17 DISCHARGE The patient was seen and examined with the nurse practitioner and nurse case management. JUAN FRANCISCO
--- NOTE | 2017-04-15 14:33 | DS ---
DATE OF SERVICE: 04/09/17 FINAL DIAGNOSIS: 1. ORTHOSTATIC HYPOTENSION 2. NEAR SYNCOPE 3. SINUSITIS/LEFT MAXILLARY/BRONCHITIS (ACUTE) 4. HYPERLIPIDEMIA 5. GERD 6. HIATAL HERNIA REPAIR 7. BPH DISCHARGE INSTRUCTIONS: Followup appointment: An appointment is scheduled with Dr. Jessica/Rhonda Andrews APRN on 04/15/17 at 1:30. MEDICATIONS AT DISCHARGE: Lexapro 5 mg p.o. bedtime LUBA Prilosec 20 mg p.o. bedtime LUBA Zocor 20 mg p.o. bedtime LUBA Flomax 0.4 mg p.o. bedtime LUBA NEW PRESCRIPTIONS: Zithromax 500 mg daily for one day Keflex 500 mg t.i.d. for 7 days Simvastatin 20 mg daily DIET INSTRUCTIONS: Regular as tolerated. ACTIVITY: Gradually resume as tolerated. No driving if experiencing dizziness. SMOKING: N/A DISEASE SPECIFIC EDUCATION: Sinusitis Hypotension, position change Medications Appointment HOSPITAL COURSE: 76-year-old white male hospitalized with acute bronchitis, sinusitis. The patient had fever and chills at home. He was dehydrated, had postural hypotension with systolic blood pressure of 90, almost passed out in the emergency room waiting area. He was laying down on the floor. The patient was hydrated. His condition improved. His hydration status improved. He did not have any dizziness. His carotid scan was negative for significant occlusive disease. His echo showed normal LV contractility. The patient's telemetry did not show any arrhythmias except for a few PVCs infrequently isolated. CONDITION AT TIME OF DISCHARGE: Stable. The patient was discharged on Keflex to be taken for 7 days. The patient has severe dyslipidemia with atherosclerosis and has been taking Simvastatin 10 mg because he complains of leg cramps. He was advised to raise the Simvastatin to 20. Non HDL goal was set at 100. He was explained about the diet. TIME SPENT: More than 60 minutes. MTDD
--- NOTE | 2017-04-15 14:35 | PN ---
CODING FOR BILLING 04/06/17 LEVEL 5 04/07/17 INTERMEDIATE 04/08/17 INTERMEDIATE 04/09/17 DISCHARGE MTDD
== END 2017-04-09 11:55 | disposition home or self-care (01) | DRG 312 ==
LOC: ED 13:13 → MEDSURG A 15:23
PROVIDERS: ADMIT Internal Medicine; ATTEND Internal Medicine
DX: I95.1 Orthostatic hypotension (principal); J01.00 Acute maxillary sinusitis, unspecified; J20.9 Acute bronchitis, unspecified; B34.9 Viral infection, unspecified; I49.3 Ventricular premature depolarization; E78.5 Hyperlipidemia, unspecified; K21.9 Gastro-esophageal reflux disease without esophagitis; N40.0 Benign prostatic hyperplasia without lower urinary tract symptoms; Z79.899 Other long term (current) drug therapy
CPT/HCPCS: 36415; 80048; 80053; 84484; 85025; 87040; 87651; 87804; 87880; 93005; 93010; 96361; 96365; 96375; 99285

== ENCOUNTER 2017-09-24 12:06 | Outpatient (CLI) ==
--- NOTE | 2017-09-24 13:09 | US ---
EXAM: Scrotal ultrasound. History: Left testicular swelling. Technique: Multiple sonographic images through the scrotum were obtained. Color duplex Doppler was used to interrogate vascular flow. Findings: The right testicle measures 3.7 cm x 2.2 cm x 2.5 cm. Blood flow is documented within the right test icle. No right intratesticular masses are identified. 4 mm right epididymal head cyst. Moderate to large right hydrocele. The left testicle measures 2.7 cm x 2.2 cm x 2.9 cm. Blood flow was documented within the left testi jennifer. No left intratesticular masses are identified. Large left hydrocele with floating debris. The left epididymis is not hyperemic. Impression: 1. Normal bilateral testicles. 2. Large left hydrocele and moderate to large right hydrocele.
== END 2017-09-24 12:07 | disposition home or self-care (01) ==
LOC: RAD 12:06
PROVIDERS: ATTEND Internal Medicine
DX: N50.89 Other specified disorders of the male genital organs (principal)

== ENCOUNTER 2018-01-07 17:47 | Emergency (ER) ==
[2018-01-07 17:54] VITALS: TEMP 98; BMI 26.1
--- NOTE | 2018-01-07 18:03 | ED.PDOC ---
General ED Provider: Dr. MIREYA ALBERTO Chief Complaint: Altered Mental Status Stated Complaint: Patient was doing fine until 3 pm, he was not knowing what they did, or where they went. did not remembered things that happed early today. no slurry speach, no weakness, brought her for the evaluation. he knows where he is, who we are, what place it is. Time Seen by Physician: 18:01 Mode of Arrival: Walk-In Information Source: Patient Primary Care Provider: JOSH STEPHENSON Nursing and Triage Documentation Reviewed and Agree: Yes Does patient meet sepsis criteria?: No If yes, has appropriate treatment been initiated?: No System Inflammatory Response Syndrome: Not Applicable Sepsis Protocol: For patient's 13 years and over: Temp is 96.8 and below OR 101 and greater Pulse >90 BPM Resp >20/minute Acutely Altered Mental Status Are patient's symptoms suggestive of a new infection, such as: -Pneumonia -Skin, Soft Tissue -Endocarditis -UTI -Bone, Joint Infection -Implantable Device -Acute Abdominal Infection -Wound Infection -Meningitis -Blood Stream Catheter Infection -Unknown Neurological Complaint Exam - Altered Mental Status Complaint/Exam Current Mental Status: Confusion Onset: Sudden Symptoms Are: Still present Timing: Intermittent Episodes Lasting: Hours Initial Severity: Mild Current Severity: None Eye Deviation Present: No Character: Reports: Confusion Aggravating: Reports: None Alleviating: Reports: None Associated Signs and Symptoms: Denies: Dizziness, Weakness, Headache, Fever, Illness, Nuchal rigidity, Seizure, Nausea, Vomiting, Recently depressed, Trauma Cardiac Risk Factors: Reports: None Nystagmus Present: No Gag Reflex Present: Yes Meningeal Signs Positive: No Focal Weakness: Present: None Focal Sensory Loss: Present: None Gait: Normal [id number]: Normal Findings Romberg Test Positive: No Babinski Sign: Negative Right, Negative Left Heel to Toe Normal: Yes Differential Diagnoses: Intracranial Bleed, Metabolic Disorder, Sepsis, CVA Review of Systems - Review Of Systems Constitutional: Reports: No symptoms Eyes: Reports: No symptoms Ears, Nose, Mouth, Throat: Reports: No symptoms Respiratory: Reports: No symptoms Cardiac: Reports: No symptoms GI: Reports: No symptoms : Reports: No symptoms Musculoskeletal: Reports: No symptoms Skin: Reports: No symptoms Neurological: Reports: No symptoms Endocrine: Reports: No symptoms Hematologic/Lymphatic: Reports: No symptoms All Other Systems: Reviewed and Negative Past Medical History - Past Medical History Previously Healthy: Yes Endocrine: Reports: Dyslipidemia Cardiovascular: Reports: Hypertension Respiratory: Reports: None Hematological: Reports: None Gastrointestinal: Reports: GERD Genitourinary: Reports: None Neuro/Psych: Reports: None Musculoskeletal: Reports: None Cancer: Reports: None - Surgical History General Surgical History: Reports: Orthopedic (right leg surgery ), Hernia Repair (hiatal hernia) - Family History Family History: Reports: Unknown - Social History Smoking Status: Former smoker Hx Substance Use: No Alcohol Screening: None Physical Exam - Physical Exam Appearance: Well-appearing, No pain distress, Well-nourished Eyes: YAHAIRA, EOMI, Conjunctiva clear ENT: Ears normal, Nose normal, Oropharynx normal Respiratory: Airway patent, Breath sounds clear, Breath sounds equal, Respirations nonlabored Cardiovascular: RRR, Pulses normal, No rub, No murmur GI/: Soft, Nontender, No masses, Bowel sounds normal, No Organomegaly Musculoskeletal: Normal strength, ROM intact, No edema, No calf tenderness Skin: Warm, Dry, Normal color Neurological: Sensation intact, Motor intact, Reflexes intact, Cranial nerves intact, Alert, Oriented Psychiatric: Affect appropriate, Mood appropriate Interpretation - Radiology Interpretation Radiology Interpretation By: Radiologist Radiology Results: Negative Exam Interpreted: CT Scan - EKG Interpretation Time of EKG #1: 18:34 Rate: Normal Rhythm: Sinus Ectopy: None Pillager: NL ST Segment: Normal Re-Evaluation - Re-Evaluation Time of Re-Evaluation: 19:40 (still says he can not remember what happened.) Status: Unchanged - Re-Evaluation Time of Re-Evaluation: 19:59 (slowly remembering things now) Status: Improved Physician Notification - Case Discussed Time of Notification: 20:31 (Dr woo) Time of Notification: 20:31 (DR Sky) Critical Care Note - Critical Care Note Total Time (mins): 30 Course - Course Hematology/Chemistry: 01/07/18 18:20 01/07/18 18:20 Orders, Labs, Meds: Lab Review 01/07/18 01/07/18 01/07/18 18:20 18:20 19:15 WBC 14.97 H RBC 4.63 L Hgb 13.9 L Hct 40.9 L MCV 88.3 MCH 30.0 MCHC 34.0 RDW Coeff of Gloria 13.2 Plt Count 237 Immature Gran % (Auto) 0.3 Neut % (Auto) 74.6 Lymph % (Auto) 14.4 [place] % (Auto) 8.0 Eos % (Auto) 2.3 Baso % (Auto) 0.4 Immature Gran # (Auto) 0.1 Neut # (Auto) 11.2 H Lymph # (Auto) 2.2 [place] # (Auto) 1.2 Eos # (Auto) 0.4 Baso # (Auto) 0.1 Sodium 138 Potassium 4.2 Chloride 104 Carbon Dioxide 27 Anion Gap 11.2 BUN 15 Creatinine 1.04 Estimated GFR (MDRD) 69.00 BUN/Creatinine Ratio 14.42 Glucose 107 Calcium 9.4 Total Bilirubin 0.5 AST 20 ALT 24 Alkaline Phosphatase 68 Total Creatine Kinase 93 Troponin I < 0.0100 Total Protein 7.3 Albumin 3.8 Globulin 3.5 Albumin/Globulin Ratio 1.09 Urine Color Yellow Urine Clarity Clear Urine pH 6.5 Ur Specific [place] 1.015 Urine Protein Negative Urine Glucose (UA) Negative Urine Ketones Negative Urine Blood Negative Urine Nitrite Negative Urine Bilirubin Negative Urine Urobilinogen 0.2 Ur Leukocyte Esterase Negative Orders Category Date Time Status EKG-(ED ONLY) Stat CARDIO 01/07/18 17:59 Completed CBC W/ AUTO DIFF Stat LAB 01/07/18 18:20 Completed COMPREHENSIVE METABOLIC PANEL Stat LAB 01/07/18 18:20 Completed CREATINE KINASE Stat LAB 01/07/18 18:20 Completed TROPONIN I Stat LAB 01/07/18 18:20 Completed UA [URINALYSIS C & S IF INDICATED] Stat LAB 01/07/18 19:15 Completed Enalaprilat Dihydrate [Vasotec IV] MEDS 01/07/18 18:29 Discontinued 1.25 mg IVP ONCE STA CHEST, 2 VIEWS PA & LAT Stat RADS 01/07/18 17:[address] HEAD W/O CONTRAST Stat RADS 01/07/18 17:59 Completed Medications Discontinued Medications Generic Name Dose Route Start Last Admin Trade Name Freq PRN Reason Stop Dose Admin Enalaprilat 1.25 mg 01/07/18 18:29 01/07/18 18:36 Vasotec Iv IVP 01/07/18 18:30 1.25 mg ONCE STA Administration Vital Signs: Temp Pulse Resp BP Pulse Ox 01/07/18 20:21 59 L 17 168/89 H 97 01/07/18 19:36 63 18 168/86 H 97 01/07/18 19:29 165/90 H 01/07/18 19:12 81 16 173/92 H 01/07/18 18:48 182/89 H 01/07/18 17:48 98.0 F 67 20 199/98 H 96 Departure - Departure Time of Disposition: 19:59 Disposition: TSF OTHER Discharge Problem: Altered mental status, Hypertensive encephalopathy syndrome Instructions: Hypertension (ED) Condition: Stable Pt referred to PMD for follow-up: Yes IPMP verified?: No Allergies/Adverse Reactions: Allergies No Known Allergies Allergy (Verified 01/07/18 17:54) Home Medications: Ambulatory Orders Escitalopram Oxalate [Lexapro] 5 mg PO BEDTIME 10/10/13 Omeprazole [Prilosec] 20 mg PO BEDTIME 10/10/13 Tamsulosin HCl [Flomax] 0.4 mg PO BEDTIME 10/10/13 Simvastatin 20 mg PO BEDTIME #30 tablet 04/09/17 Disposition Discussed With: Patient
[2018-01-07] MEDS ORDERED: VASOTEC IV IVP STA (18:29)
--- NOTE | 2018-01-07 18:36 | CT ---
EXAM: CT head without contrast 01/07/2018. Sagittal and coronal reformatted images obtained HISTORY: Altered mental status COMPARISON: 04/06/2017 FINDINGS: There is no evidence of intracranial hemorrhage. The midline is maintained. There is no h ydrocephalus. Generalized atrophy. Chronic small vessel ischemic changes. No cerebellar tonsillar ectopia. Evaluation of the calvarium shows no fracture. The mastoid air cells are normally pneumati zed. Mucosal thickening of the ethmoidal and maxillary sinuses consistent with sinusitis. IMPRESSION: No acute intracranial abnormality. Atrophy and small vessel ischemic change. Sinusitis.
[2018-01-07 20:21] VITALS: BP 168/89
--- NOTE | 2018-01-08 05:31 | DI ---
EXAM: Chest two views HISTORY: Altered mental status FINDINGS: Normal cardiac and mediastinal contours. Normal pulmonary vasculature. Lungs are clear. No significant abnormality of the bony thorax. IMPRESSION: Chest radiograph within normal limits.
== END 2018-01-07 21:12 | disposition short-term general hospital (02) ==
LOC: ED 17:47
DX: R41.82 Altered mental status, unspecified (principal); I67.4 Hypertensive encephalopathy; E78.5 Hyperlipidemia, unspecified; Z79.899 Other long term (current) drug therapy
CPT/HCPCS: 36415; 80053; 81001; 82550; 84484; 85025; 93005; 93010; 96374; 99285